=== PATIENT | male | born 1960 | race Caucasian/White ===

== ENCOUNTER 2016-09-06 22:11 | Emergency (ER) | payer OTHER ==
--- NOTE | 2016-09-11 14:50 | ER ---
ADMIT: 09/06/2016 RM/LOC: ER [facility] MR#: [id number] [address] [id number] [place] [address] Emergency Room Report SEX: M AGE: 55 : 1960 DATE: 09/06/2016 ADDENDUM: See T-sheet for complete H and P. A 55-year-old male, comes in complaining of right shoulder pain he sustained after he ran into a wall when playing basketball about an hour and a half ago. He has no sense of loss of strength or sensation in the arm. He has no previous shoulder injury. On examination, I do not see any anterior fullness in his axilla and there is no loss of mass in his deltoid region. Neurosensory exam is completely intact. He has good strength and good pulses in the right arm. X-ray was done, which reveals no acute bony abnormality or dislocation. I believe based on his exam and history, he likely has a type 1 AC dislocation. He was given shot of Toradol, some Valium and [place] while in the Emergency Department. He was discharged home in stable condition, to use anti-inflammatories and [place] as needed for pain. He is to follow up with Dr. Tejeda if his symptoms are not improving. Des Odom MD/ percy JOB #: [id number] CC: Gurmeet Ceja MD, Attending Physician Keira Tejeda MD, Family Physician
== END 2016-09-06 23:54 | disposition home or self-care (01) ==
LOC: ER 22:11
DX: S43.101A Unspecified dislocation of right acromioclavicular joint, initial encounter (principal); Y92.39 Other specified sports and athletic area as the place of occurrence of the external cause; Z87.891 Personal history of nicotine dependence; J45.909 Unspecified asthma, uncomplicated; Z79.899 Other long term (current) drug therapy; W22.01XA Walked into wall, initial encounter; Y93.67 Activity, basketball